=== PATIENT | female | born 1950 | race American Indian/Alaskan Native ===

== ENCOUNTER 2019-08-06 19:24 | Emergency (ER) | payer MEDICARE ==
--- NOTE | 2019-08-06 19:39 | Emergency Department Report ---
Blank Doc - Documentation Documentation: 68-year-old female that presents with left upper abdominal pain with n/v. This initial assessment/diagnostic orders/clinical plan/treatment(s) is/are subject to change based on patient's health status, clinical progression and re- assessment by fellow clinical providers in the ED. Further treatment and workup at subsequent clinical providers discretion. Patient/guardians urged not to elope from the ED as their condition may be serious if not clinically assessed and managed. Initial orders include: 1- Patient sent to [facility] for further evaluation and treatment 2- labs 3- UA
[2019-08-06 19:42] VITALS: BP 186/81
--- NOTE | 2019-08-06 20:13 | Emergency Department Report ---
ED Abdominal Pain HPI - General Chief Complaint: Abdominal Pain Stated Complaint: CHEST PAIN/ABDOMINAL PAIN AND COUGH Time Seen by Provider: 08/06/19 19:37 Source: patient Mode of arrival: Ambulatory Limitations: No Limitations - History of Present Illness Initial Comments: Patient is 68 years old female with history of hypertension. Patient presented to the ER complaining of left upper quadrant pain for the last 2 weeks. Patient described her pain as sharp and comes and goes with no radiation. Patient denied any fever or chills. Patient denied any chest pain. MD Complaint: abdominal pain -: week(s) Location: [facility] Radiation: none Migration to: no migration Severity: moderate ED Review of Systems ROS: Stated complaint: CHEST PAIN/ABDOMINAL PAIN AND COUGH Other details as noted in HPI Comment: All other systems reviewed and negative Constitutional: denies: chills, fever Respiratory: denies: cough, shortness of breath, SOB with exertion, wheezing Cardiovascular: denies: chest pain Gastrointestinal: denies: abdominal pain, nausea, vomiting Musculoskeletal: denies: back pain Neurological: denies: headache, weakness, numbness, paresthesias, confusion ED Past Medical Hx - Past Medical History Previous Medical History?: Yes Hx Hypertension: Yes - Surgical History Past Surgical History?: No - Social History Smoking Status: Former Smoker Substance Use Type: None ED Physical Exam - General Limitations: No Limitations General appearance: alert, in no apparent distress - Head Head exam: Present: atraumatic, normocephalic, normal inspection - Eye Eye exam: Present: normal appearance - ENT ENT exam: Present: normal exam, normal orophraynx, mucous membranes moist - Neck Neck exam: Present: normal inspection, full ROM. Absent: tenderness, meningismus - Respiratory Respiratory exam: Present: normal lung sounds bilaterally - Cardiovascular Cardiovascular Exam: Present: regular rate, normal rhythm, normal heart sounds - GI/Abdominal GI/Abdominal exam: Present: soft, tenderness (left upper quadrant ), normal bowel sounds. Absent: distended, guarding, rebound, rigid, organomegaly, mass, bruit, pulsatile mass, hernia - Extremities Exam Extremities exam: Present: normal inspection, full ROM, normal capillary refill. Absent: tenderness, pedal edema, calf tenderness - Back Exam Back exam: Present: normal inspection, full ROM. Absent: CVA tenderness (R), CVA tenderness (L) - Neurological Exam Neurological exam: Present: alert, oriented X3, CN II-XII intact, normal gait, reflexes normal - Skin Skin exam: Present: warm, intact, normal color ED Course Vital Signs 08/06/19 19:38 Temperature 97.9 F Pulse Rate 98 H Respiratory 18 Rate Blood Pressure 186/81 O2 Sat by Pulse 100 Oximetry ED Medical Decision Making - Lab Data Result diagrams: 08/06/19 19:41 08/06/19 19:41 - EKG Data -: EKG Interpreted by Oh - Radiology Data Radiology results: report reviewed Referring Physician: VIC RANDOLPH Patient Name: ABIMAEL HEADLEY Date of : 1950 Sex: Female Report Date: 2019-08-07 Report Status: Finalized Findings [facility] [address] [place] [address] Cat Scan Report Signed Patient: ABIMAEL HEADLEY MR#: [id number] : 1950 Acct:[id number] Age/Sex: 68 / F ADM Date: 08/06/19 Loc: ED Attending Dr: Ordering Physician: VIC RANDOLPH Date of Service: 08/06/19 Procedure(s): CT abdomen pelvis w con Accession Number(s): [id number] cc: VIC RANDOLPH CT ABDOMEN AND PELVIS WITH CONTRAST INDICATION: abdominal pain/ [facility] PAIN CONTRAST: 60 cc Omnipaque 300 IV COMPARISON: None available. All CT scans at this location are performed using CT dose reduction for ALARA by means of automated exposure control. FINDINGS: Lung bases show chronic changes. Large hiatal hernia is noted with all of the stomach above the diaphragm without obvious acute change. Old right rib fractures are seen. Gallbladder is slightly distended but shows no calculi or wall thickening. No significant biliary dilatation is noted. Pancreas appears within normal limits. Right kidney is mildly atrophic. Small cyst and probable cysts are seen in the left kidney. No urinary obstructive changes are seen. Appendix is not visualized. No evidence of bowel obstruction is seen. No significant abdominal wall herniation is noted. IMPRESSION: 1. No acute abnormalities are seen 2. Huge hiatal hernia with all of the stomach above the diaphragm Signer Name: Ronal Larsen MD Signed: 08/07/2019 12:55 AM Workstation Name: [email or web address] Transcribed By: GJ Dictated By: Ronal Larsen MD Electronically Authenticated By: Ronal Larsen MD Signed Date/Time: 08/07/1954 DD/ TD/TT: Critical care attestation.: If time is entered above; I have spent that time in minutes in the direct care of this critically ill patient, excluding procedure time. ED Disposition Clinical Impression: Abdominal pain, Hiatal hernia Disposition: TO HOME OR SELFCARE Is pt being admited?: No Condition: Stable Instructions: Abdominal Pain (ED), Hiatal Hernia (ED) Referrals: [facility] [place] [Other] - 3-5 Days EULOGIO EARLY DO [Staff Physician] - 3-5 Days
[2019-08-06 20:44] LABS: Basophils % (Auto) 0.5 % (0.0-1.8); Eosinophils % (Auto) 0.2 % (0.0-4.3); Hematocrit 40.8 % (30.3-42.9); Hemoglobin 13.2 gm/dl (10.1-14.3); Lymphocytes # (Auto) 2.2 K/mm3 (1.2-5.4); Lymphocytes % (Auto) 31.9 % (13.4-35.0); Mean Corpuscular HGB Conc 33 % (30-34); Mean Corpuscular Volume 81 fl (79-97); Monocytes # (Auto) 0.4 K/mm3 (0.0-0.8); Platelet Count 332 K/mm3 (140-440); Red Blood Count 5.02 M/mm3 (3.65-5.03); Red Cell Distribution Width 18.7 % (13.2-15.2)
[2019-08-06 20:50] LABS: Alanine Aminotransferase 17 units/L (7-56); Albumin 4.4 g/dL (3.9-5); BUN/Creatinine Ratio 11; Blood Urea Nitrogen 15 mg/dL (7-17); Calcium 8.9 mg/dL (8.4-10.2); Hemolysis Index 15
[2019-08-06 20:54] LABS: INR 1.22 (0.87-1.13)
[2019-08-06 20:55] LABS: Partial Thromboplastin Time 34.4 Sec. (24.2-36.6)
--- NOTE | 2019-08-06 22:28 | XRay Report ---
CHEST 1 VIEW INDICATION: Chest Pain. COMPARISON: None FINDINGS: SUPPORT DEVICES: None. HEART / MEDIASTINUM: No significant abnormality. LUNGS / PLEURA: No significant pulmonary or pleural abnormality. No pneumothorax. ADDITIONAL FINDINGS: Large hiatal hernia is present. IMPRESSION: 1. No acute findings. Signer Name: Dionisio Hooker MD Signed: 08/06/2019 10:24 PM Workstation Name: [email or web address] [id number]
--- NOTE | 2019-08-07 00:59 | Cat Scan Report ---
CT ABDOMEN AND PELVIS WITH CONTRAST INDICATION: abdominal pain/ [facility] PAIN CONTRAST: 60 cc Omnipaque 300 IV COMPARISON: None available. All CT scans at this location are performed using CT dose reduction for ALARA by means of automated e xposure control. FINDINGS: Lung bases show chronic changes. Large hiatal hernia is noted with all of the stomach above the diaphragm without obvious acute change. Old right rib fractures are seen. Gallbladder is slightl y distended but shows no calculi or wall thickening. No significant biliary dilatation is noted. Panc reas appears within normal limits. Right kidney is mildly atrophic. Small cyst and probable cysts are seen in the left kidney. No urinary obstructive changes are seen. Appendix is not visualized. No vivienne dence of bowel obstruction is seen. No significant abdominal wall herniation is noted. IMPRESSION: 1. No acute abnormalities are seen 2. Huge hiatal hernia with all of the stomach above the diaphragm Signer Name: Ronal Larsen MD Signed: 08/07/2019 12:55 AM Workstation Name: [id number]
== END 2019-08-07 01:30 | disposition home or self-care (01) ==
LOC: ED 19:24
DX: K44.9 Diaphragmatic hernia without obstruction or gangrene (principal); I10 Essential (primary) hypertension
CPT/HCPCS: 36415; 71045; 74177; 80053; 83690; 84484; 85025; 85379; 85610; 85730; 99284; Q9967